=== PATIENT | male | born 1955 | race Caucasian/White ===

== ENCOUNTER 2019-12-12 07:20 | Emergency (ER) | payer MEDICARE, BC ==
[2019-12-12] MEDS ORDERED: Phenytoin SUSP(*) 100 MG/4 ML UDC (100 MG) PO ONE (08:01)
--- NOTE | 2019-12-12 08:07 | ED ---
GI/ HPI - HPI Summary HPI Summary: 63-year-old male presents to the emergency department today with a chief complaint of explosive diarrhea for approximately 24 hours. Patient states he otherwise feels well and has no complaints. Patient endorses a liquid diet due to having dysphasia. He states he tried a new protein drink which within minutes of consuming caused him to have nausea and approximately 9 bouts of explosive diarrhea. Patient denies fevers, blood per rectum, vomiting but does have 3 out of 10 abdominal pain which is resolving. Patient states he has been unable to take his seizure medication, Dilantin, due to nausea. Patient denies fever, chills, shortness of breath, pain with urination, rash, lightheadedness, vomiting. - History of Current Complaint Chief Complaint: EDNauseaVomitDiarrh Time Seen by Provider: 12/12/19 07:52 Stated Complaint: ABD PAIN/SEVERE DIARREA PER PT Hx Obtained From: Patient, Family/Supervisor Correspondence Section - Onset/Duration: Started Hours Ago Timing: Intermittent, Lasting Minutes Severity: Moderate Current Severity: Moderate Pain Intensity: 1 Location of Pain: Diffuse Pain Characteristics: Cramping Associated Signs and Symptoms: Positive: Nausea, Diarrhea. Negative: Vomiting, Constipation, Blood-Streaked Stool, Bright Red Blood w/Stool, Blood w/Stool, Fever - Allergy/Home Medications Allergies/Adverse Reactions: Allergies Allergy/AdvReac Type Severity Reaction Status Date / Time No Known Allergies Allergy Verified 12/12/19 07:24 Home Medications: Home Medications Albuterol HFA INHALER* [Ventolin HFA Inhaler*] 1 puff INH Q4H PRN 12/12/19 [ History Confirmed 12/12/19] Atenolol TAB* [Tenormin TAB* 25 MG] 25 mg PO DAILY 12/12/19 [History Confirmed 12/12/19] Flu Vacc [id number](6Mos Up)/Pf [Fluzone Quad Syringe] 60 mcg IM ONCE 12/12/19 [History Confirmed 12/12/19] Magnesium Oxide TAB* [MagOx 400 TAB*] 400 mg PO DAILY 12/12/19 [History Confirmed 12/12/19] Nitroglycerin 0.1 mg/Hr PATCH* [Nitroglycerin 2.5 MG PATCH*] 1 patch TRANSDERM QPM 12/12/19 [History Confirmed 12/12/19] Phenytoin CAP(*) [Dilantin CAP(*)] 300 mg PO BID 12/12/19 [History Confirmed 01/26] Prazosin 1 mg CAP [Minipress 1 mg CAP] 1 mg PO BID 12/12/19 [History Confirmed 12/12/19] predniSONE [Prednisone 20 MG TAB] 40 mg PO DAILY 12/12/19 [History Confirmed 01/26] PMH/Surg Hx/FS Hx/Imm Hx - Immunization History Date of Influenza Vaccine: 2019 Immunizations Up to Date: Yes Infectious Disease History: No Infectious Disease History: Denies: Traveled Outside the [place] in Last 30 Days - Social History Alcohol Use: None Substance Use Type: Reports: None Smoking Status (MU): Never Smoked Tobacco Review of Systems Constitutional: Negative Eyes: Negative ENT: Negative Cardiovascular: Negative Respiratory: Negative Positive: Abdominal Pain, Diarrhea, Nausea. Negative: Vomiting Genitourinary: Negative Musculoskeletal: Negative Skin: Negative Neurological: Negative Psychological: Normal All Other Systems Reviewed And Are Negative: Yes Physical Exam Triage Information Reviewed: Yes Vital Signs On Initial Exam: Initial Vitals Temp Pulse Resp BP Pulse Ox 97.1 F 89 19 145/87 94 12/12/19 07:23 12/12/19 07:23 12/12/19 07:23 12/12/19 07:23 12/12/19 07:23 Vital Signs Reviewed: Yes Appearance: Positive: Well-Appearing, No Pain Distress, Well-Nourished, Thin Skin: Positive: Warm, Skin Color Reflects Adequate Perfusion Eyes: Positive: EOMI, BRIDGETTE ENT: Positive: Hearing grossly normal Respiratory/Lung Sounds: Positive: Clear to Auscultation, Breath Sounds Present Cardiovascular: Positive: RRR, S1, S2 Abdomen Description: Positive: Nontender, No Organomegaly, Soft. Negative: Distended, Guarding Bowel Sounds: Positive: Present Musculoskeletal: Positive: Strength/ROM Intact Neurological: Positive: Sensory/Motor Intact, Alert, Oriented to Person Place, Time, Normal Gait, Speech Normal Psychiatric: Positive: Normal, Affect/Mood Appropriate AVPU Assessment: Alert Procedures - Sedation Patient Received Moderate/Deep Sedation with Procedure: No Diagnostics - Vital Signs Vital Signs Temp Pulse Resp BP Pulse Ox 12/12/19 07:23 97.1 F 89 19 145/87 94 - Laboratory Result Diagrams: 12/12/19 08:10 12/12/19 08:10 Lab Statement: Any lab studies that have been ordered have been reviewed, and results considered in the medical decision making process. GIGU Course/Dx - Course Course Of Treatment: Patient was evaluated in the emergency department today for suspected dehydration. Vitals noted and stable. Phenytoin level was ordered at the patient's 's request as the patient has been unable to take his phenytoin. Phenytoin levels slightly low. All other labs are within normal limits and there are no significant electrolyte abnormalities or evidence of leukocytosis. Patient was given 2 L of lactated Ringer's for fluid resuscitation. Patient endorsed feeling much better after being given fluids. Patient discharged with outpatient follow-up. - Diagnoses Differential Diagnoses - Male: Diarrhea, Gastritis, Gastroenteritis (Bacterial) , Gastroenteritis (Viral) Provider Diagnoses: Dehydration, Diarrhea Discharge ED - Sign-Out/Discharge Documenting (check all that apply): Patient Departure - Discharge Plan Condition: Stable Disposition: HOME Patient Education Materials: Dehydration (ED) Referrals: [facility] [Outside] - 3 Days No Primary Care Phys,NOPCP [Primary Care Provider] - Additional Instructions: You were seen in the emergency department today due to dehydration. Please be sure to increase oral intake of fluids. Please follow up with [facility] in 3 days for further evaluation and management. Please return to the emergency department immediately if you develop any new or worsening symptoms. - Billing Disposition and Condition Condition: STABLE Disposition: Home - Attestation Statements Provider Attestation: I was available for consultation for this patient. I did not evaluate the patient, or participate in any medical decision making or disposition decisions unless I am specifically named in the chart as having consulted on the patient. If I have consulted on the patient, please see my own ED note on the patient encounter. Silvia Sorenson MD
[2019-12-12 08:22] LABS: ABS Basophils 0.1 10^3/ul (0-0.2); ABS Eosinophils 0.2 10^3/ul (0-0.6); ABS Lymphocytes 0.6 10^3/ul (1.0-4.8); ABS Monocytes 0.4 10^3/ul (0-0.8); ABS Neutrophils 4.1 10^3/ul (1.5-7.7); Eosinophil % 4.4 %; Hematocrit 46 % (42-52); Hemoglobin 15.7 g/dL (14.0-18.0); Lymphocyte % 10.5 %; Mean Corpuscular HGB Conc 34 g/dL (31-36); Mean Corpuscular Hemoglobin 30 pg (27-31); Mean Corpuscular Volume 88 fL (80-94); Mean Platelet Volume 6.7 fL (7.4-10.4); Nucleated Red Blood Cells % 0.1; Platelet Count 293 10^3/uL (150-450); Red Blood Count 5.27 10^6 /uL (4.18-5.48); Red Cell Distribution Width 14 % (10-15); White Blood Count 5.4 10^3/uL (3.5-10.8)
[2019-12-12 08:39] LABS: Albumin 3.8 g/dL (3.2-5.2); Albumin/Globulin Ratio 0.9 (1-3); BUN/Creatinine Ratio 19.6 (8-20); Calcium 9.4 mg/dL (8.6-10.3); EGFR African American 100.2 (>60); EGFR Non-African American 82.8 (>60); Globulin 4.3 g/dL (2-4); Magnesium 1.8 mg/dL (1.9-2.7); Potassium 4.3 mmol/L (3.5-5.0); Total Bilirubin 0.5 mg/dL (0.2-1.0); Total Protein 8.1 g/dL (6.4-8.9)
[2019-12-12 08:48] LABS: Phenytoin 9.3 mcg/mL (10-20)
[2019-12-12] MEDS ORDERED: Lactated Ringers 1000 ML Bag* 1,000 ML IV SCH (09:00)
[2019-12-12] MEDS ORDERED: Phenytoin CHEW TAB(*) 50 MG PO ONE (09:30)
[2019-12-12 10:37] VITALS: BP 162/127
== END 2019-12-12 10:37 | disposition home or self-care (01) ==
LOC: ED 07:20
DX: R19.7 Diarrhea, unspecified (principal); E86.0 Dehydration; Z79.899 Other long term (current) drug therapy
CPT/HCPCS: 36415; 80053; 80185; 83735; 85025; 96360; 99282; A9270-GY

== ENCOUNTER 2020-04-29 00:35 | Inpatient (IN) ==
[2020-04-29] MEDS ORDERED: NS 0.9% 1000 ml BAG 1,000 ML IV ONE (00:52)
[2020-04-29] MEDS ORDERED: Albuterol/Ipratropium NEB.SOL (2.5/0.5 MG) 3 ML NEB.SOLN ONE (01:10)
[2020-04-29] MEDS ORDERED: Albuterol/Ipratropium NEB.SOL (2.5/0.5 MG) 3 ML NEB.SOLN INH ONE ×2 (01:22→03:29)
[2020-04-29] MEDS ORDERED: Piperacillin/Tazobac ADVAN(*) 3.375 GM in NS 0.9% 100 ml BAG 100 ML IVPB ONE (02:10)
[2020-04-29] MEDS ORDERED: methylPREDNISolone 125 mg 2 ML VIAL IV ONE (02:31)
[2020-04-29 02:47] LABS: ABS Basophils 0.1 10^3/ul (0-0.2); ABS Eosinophils 0.2 10^3/ul (0-0.6); ABS Monocytes 0.7 10^3/ul (0-0.8); Eosinophil % 3.3 %; Hematocrit 50 % (42-52); Hemoglobin 17.1 g/dL (14.0-18.0); Mean Corpuscular HGB Conc 34 g/dL (31-36); Mean Corpuscular Hemoglobin 31 pg (27-31); Mean Corpuscular Volume 91 fL (80-94); Mean Platelet Volume 7.6 fL (7.4-10.4); Nucleated Red Blood Cells % 0.1; Platelet Count 371 10^3/uL (150-450); Red Blood Count 5.47 10^6 /uL (4.18-5.48); Red Cell Distribution Width 14 % (10-15)
[2020-04-29] MEDS ORDERED: Cefepime 2 GM in Dextrose(*) 2 GM/50 ML BAG IV ONE (02:52)
[2020-04-29] MEDS ORDERED: metroNIDAZOLE IV 250 MG/50ML 50 ML IVPB ONE ×2 (02:53→06:00)
[2020-04-29 02:59] LABS: INR 1.35 (0.82-1.09)
[2020-04-29] MEDS ORDERED: Ondansetron 4 mg VIAL 2 MG/ML 2 ml VIAL IV PRN (02:59)
[2020-04-29 03:06] LABS: ALT 18 U/L (7-52); AST 24 U/L (13-39); Albumin 3.9 g/dL (3.2-5.2); Albumin/Globulin Ratio 0.9 (1-3); Alkaline Phosphatase 73 U/L (34-104); Anion Gap 9 mmol/L (2-11); BUN/Creatinine Ratio 27.7 (8-20); Blood Urea Nitrogen 23 mg/dL (6-24); CO2 Carbon Dioxide 32 mmol/L (22-32); Calcium 9.8 mg/dL (8.6-10.3); Chloride 93 mmol/L (101-111); EGFR African American 112.5 (>60); Globulin 4.5 g/dL (2-4); Glucose 176 mg/dL (70-100); Potassium 3.7 mmol/L (3.5-5.0); Sodium 134 mmol/L (135-145); Total Protein 8.4 g/dL (6.4-8.9)
[2020-04-29 03:11] LABS: Troponin I 0.03 ng/mL (<0.03)
[2020-04-29] MEDS: Pantoprazole VIAL 40 MG VIAL IV SCH ×2 (03:18→19:58)
[2020-04-29 03:28] LABS: Magnesium 1.5 mg/dL (1.9-2.7); Phosphorus 3.3 mg/dL (2.5-5.0)
[2020-04-29] MEDS ORDERED: NS 0.9% 1000 ml BAG 1,000 ML IV SCH (03:30)
[2020-04-29] MEDS ORDERED: Albuterol/Ipratropium NEB.SOL (2.5/0.5 MG) 3 ML NEB.SOLN INH PRN (03:33)
[2020-04-29] MEDS: Nitro Patch/OINT Remove PATCH PATCH OFF SCH (06:24)
[2020-04-29] MEDS ORDERED: PHENYTOIN 100 MG SCH (09:00)
[2020-04-29 09:40] LABS: Troponin I 0.03 ng/mL (<0.03)
[2020-04-29] MEDS: Cefepime 2 GM in Dextrose(*) 2 GM/50 ML BAG IV SCH (15:38)
[2020-04-29] MEDS ORDERED: metroNIDAZOLE IV 500 MG/100ML 500 MG/100 ML BAG IVPB SCH (17:00)
[2020-04-29] MEDS: Nitroglycerin 0.1 mg/hr PATCH (2.5 mg) TRANSDERM SCH (17:46)
[2020-04-29] MEDS ORDERED: Lactated Ringers 1000 ml BAG 1,000 ML IV SCH (18:00)
[2020-04-30] MEDS: Cefepime 2 GM in Dextrose(*) 2 GM/50 ML BAG IV SCH ×2 (04:04→16:38)
[2020-04-30] MEDS: Nitro Patch/OINT Remove PATCH PATCH OFF SCH (06:01)
[2020-04-30 06:49] LABS: BUN/Creatinine Ratio 33.3 (8-20); Calcium 9.6 mg/dL (8.6-10.3); EGFR African American 120.9 (>60); EGFR Non-African American 99.9 (>60)
[2020-04-30 07:15] LABS: Phenytoin 33.2 mcg/mL (10-20)
[2020-04-30] MEDS ORDERED: Lorazepam PYXIS KEY ONE ×2 (09:40→09:42)
[2020-04-30] MEDS: Pantoprazole VIAL 40 MG VIAL IV SCH ×2 (09:49→21:06)
[2020-04-30] MEDS ORDERED: metroNIDAZOLE IV 250 MG/50ML 50 ML IVPB SCH (13:00)
[2020-04-30] MEDS: Albuterol/Ipratropium NEB.SOL (2.5/0.5 MG) 3 ML NEB.SOLN INH SCH ×2 (13:02→19:26)
[2020-04-30] MEDS ORDERED: Lactated Ringers 500 ml BAG 500 ML IV ONE (13:43)
[2020-04-30] MEDS: Enoxaparin 40 MG/0.4 ML SYR(*) SUBCUT SCH (15:07)
[2020-04-30] MEDS: Lactated Ringers 1000 ml BAG 1,000 ML IV SCH (15:09)
[2020-04-30] MEDS: Nitroglycerin 0.1 mg/hr PATCH (2.5 mg) TRANSDERM SCH (16:48)
[2020-04-30] MEDS: metroNIDAZOLE IV 250 MG/50ML 50 ML IVPB SCH (21:06)
[2020-05-01] MEDS: Albuterol/Ipratropium NEB.SOL (2.5/0.5 MG) 3 ML NEB.SOLN INH SCH ×3 (00:38→14:47)
[2020-05-01] MEDS: Lactated Ringers 1000 ml BAG 1,000 ML IV SCH (00:52)
[2020-05-01] MEDS: metroNIDAZOLE IV 250 MG/50ML 50 ML IVPB SCH ×4 (04:36→21:01)
[2020-05-01] MEDS: Cefepime 2 GM in Dextrose(*) 2 GM/50 ML BAG IV SCH ×2 (06:11→16:31)
[2020-05-01] MEDS: Nitro Patch/OINT Remove PATCH PATCH OFF SCH (06:12)
[2020-05-01 07:12] LABS: ABS Lymphocytes 0.4 10^3/ul (1.0-4.8); ABS Monocytes 0.6 10^3/ul (0-0.8); Eosinophil % 0.6 %; Hematocrit 38 % (42-52); Hemoglobin 13.1 g/dL (14.0-18.0); Lymphocyte % 5.8 %; Mean Corpuscular HGB Conc 35 g/dL (31-36); Mean Corpuscular Hemoglobin 32 pg (27-31); Mean Corpuscular Volume 92 fL (80-94); Mean Platelet Volume 7.2 fL (7.4-10.4); Nucleated Red Blood Cells % 0.1; Platelet Count 205 10^3/uL (150-450); Red Cell Distribution Width 14 % (10-15); White Blood Count 7.6 10^3/uL (3.5-10.8)
[2020-05-01 07:31] LABS: Albumin 3.3 g/dL (3.2-5.2); Albumin/Globulin Ratio 0.9 (1-3); BUN/Creatinine Ratio 37.2 (8-20); Calcium 9.2 mg/dL (8.6-10.3); EGFR Non-African American 89.2 (>60); Globulin 3.6 g/dL (2-4); Potassium 3.8 mmol/L (3.5-5.0); Total Bilirubin 0.5 mg/dL (0.2-1.0); Total Protein 6.9 g/dL (6.4-8.9)
[2020-05-01 07:37] LABS: Phenytoin 24.5 mcg/mL (10-20)
[2020-05-01] MEDS ORDERED: Albuterol 2.5mg/3 ml (0.083%) NEB.SOLN INH PRN (07:50)
[2020-05-01] MEDS: Pantoprazole VIAL 40 MG VIAL IV SCH ×2 (09:29→21:01)
[2020-05-01] MEDS ORDERED: guaiFENesin 100 mg/5 ml LIQ unit dose cup G TUBE PRN (12:36)
[2020-05-01] MEDS: Enoxaparin 40 MG/0.4 ML SYR(*) SUBCUT SCH (12:51)
[2020-05-01] MEDS ORDERED: Albuterol/Ipratropium NEB.SOL (2.5/0.5 MG) 3 ML NEB.SOLN INH PRN (14:51)
[2020-05-01] MEDS: Nitroglycerin 0.1 mg/hr PATCH (2.5 mg) TRANSDERM SCH (18:00)
[2020-05-01] MEDS ORDERED: Nitroglycerin 0.1 mg/hr PATCH (2.5 mg) TRANSDERM SCH (18:30)
[2020-05-02] MEDS: metroNIDAZOLE IV 250 MG/50ML 50 ML IVPB SCH ×2 (03:03→09:04)
[2020-05-02] MEDS: Nitro Patch/OINT Remove PATCH PATCH OFF SCH (04:11)
[2020-05-02] MEDS: Cefepime 2 GM in Dextrose(*) 2 GM/50 ML BAG IV SCH (04:11)
[2020-05-02 06:53] LABS: ABS Eosinophils 0.2 10^3/ul (0-0.6); ABS Lymphocytes 0.6 10^3/ul (1.0-4.8); ABS Monocytes 0.6 10^3/ul (0-0.8); Eosinophil % 3.1 %; Hematocrit 37 % (42-52); Hemoglobin 12.7 g/dL (14.0-18.0); Mean Corpuscular HGB Conc 35 g/dL (31-36); Mean Corpuscular Hemoglobin 32 pg (27-31); Mean Corpuscular Volume 91 fL (80-94); Mean Platelet Volume 7.2 fL (7.4-10.4); Platelet Count 201 10^3/uL (150-450); Red Blood Count 4.04 10^6 /uL (4.18-5.48); Red Cell Distribution Width 14 % (10-15); White Blood Count 7.9 10^3/uL (3.5-10.8)
[2020-05-02 07:02] LABS: EGFR African American 117.4 (>60); Potassium 3.7 mmol/L (3.5-5.0)
[2020-05-02 07:51] LABS: Phenytoin 20.4 mcg/mL (10-20)
[2020-05-02] MEDS: Pantoprazole VIAL 40 MG VIAL IV SCH (09:03)
[2020-05-02] MEDS: Lactated Ringers 1000 ml BAG 1,000 ML IV SCH (09:22)
[2020-05-02 12:08] VITALS: BP 110/62
[2020-05-02] MEDS: Enoxaparin 40 MG/0.4 ML SYR(*) SUBCUT SCH (13:38)
== END 2020-05-02 16:25 | disposition home or self-care (01) | DRG 177 ==
LOC: ED 00:35 → ICU 03:49 → MED 17:25
PROVIDERS: ADMIT Internal Medicine; ATTEND Internal Medicine

== ENCOUNTER 2022-02-15 17:27 | Inpatient (IN) ==
[2022-02-15] MEDS ORDERED: NS 0.9% 1000 ml BAG 1,000 ML IV ONE (17:44)
[2022-02-15 18:31] LABS: ABS Lymphocytes 0.5 10^3/ul (1.0-4.8); ABS Monocytes 0.1 10^3/ul (0-0.8); ABS Neutrophils 3.2 10^3/ul (1.5-7.7); Hematocrit 43 % (42-52); Hemoglobin 14.3 g/dL (14.0-18.0); Lymphocyte % 13.6 %; Mean Corpuscular HGB Conc 34 g/dL (31-36); Mean Corpuscular Hemoglobin 28 pg (27-31); Mean Corpuscular Volume 83 fL (80-94); Mean Platelet Volume 8.1 fL (7.4-10.4); Nucleated Red Blood Cells % 0.1; Platelet Count 278 10^3/uL (150-450); Red Blood Count 5.14 10^6 /uL (4.18-5.48); Red Cell Distribution Width 15 % (10-15); White Blood Count 3.9 10^3/uL (3.5-10.8)
[2022-02-15 19:00] LABS: Albumin 3.6 g/dL (3.2-5.2); Calcium 8.7 mg/dL (8.6-10.3); Globulin 3.5 g/dL (2-4); Potassium 4.2 mmol/L (3.5-5.0); Total Bilirubin 0.7 mg/dL (0.2-1.0); Total Protein 7.1 g/dL (6.4-8.9); eGFR CKD-EPI 93.6 (>60)
[2022-02-15 19:08] LABS: PCO2 Arterial 42 mmHg (35-45); PO2 Arterial 70 mmHg (80-100)
[2022-02-15] MEDS ORDERED: Rocuronium 50 mg VIAL 10 mg/ml 5 ml VIAL (50 mg) ONE (19:16)
[2022-02-15] MEDS ORDERED: Succinylcholine 200 mg VIAL 20 mg/ml 10 ml VIAL (200 mg) ONE (19:16)
[2022-02-15] MEDS ORDERED: Iohexol 350 (CONTRAST) 500 ML MDV IV ONE (19:16)
[2022-02-15] MEDS ORDERED: Metoprolol Tartrate 5 mg VIAL 5 ml VIAL (1 mg/ml) ONE (19:42)
[2022-02-15] MEDS: Metoprolol Tartrate 5 mg VIAL 5 ml VIAL (1 mg/ml) IV PRN (19:44)
[2022-02-15] MEDS ORDERED: Piperacillin/Tazobac ADVAN 3.375 GM in NS 0.9% 100 ml BAG 100 ML IV ONE (20:20)
[2022-02-15] MEDS ORDERED: Heparin DRIP 25,000 UNITS BAG 25,000 UNITS/500 ML BAG IV SCH (20:30)
[2022-02-15 20:34] LABS: High Sensitivity Troponin 1 Hr 18 pg/mL (<20)
[2022-02-15] MEDS ORDERED: Ondansetron 4 mg VIAL 2 MG/ML 2 ml VIAL IV PRN (20:57)
[2022-02-15] MEDS ORDERED: Heparin 5000 UNITS/ML 1 mL VIAL IV SCH (21:00)
[2022-02-15] MEDS ORDERED: Dexmedetomidine 1,000 MCG in NS 0.9% 250 ml 240 ML IV SCH (21:00)
[2022-02-15] MEDS ORDERED: Zosyn per Pharmacy NOTE FOLLOW UP SCH (21:00)
[2022-02-15] MEDS: Nitroglycerin 0.4 mg/hr PATCH (10 mg) TRANSDERM SCH (21:15)
[2022-02-15 21:16] LABS: INR 1.78 (0.86-1.15)
[2022-02-15 21:59] LABS: INR 4.04 (0.86-1.15)
[2022-02-15] MEDS ORDERED: D5W 1/2 NS KCl 20 meq 1000 ml 1,000 ML IV SCH (22:00)
[2022-02-15] MEDS: Enoxaparin 80 MG/0.8 ML SYR SUBCUT SCH (22:59)
[2022-02-16] MEDS: ZOSYN 3.375 GM Q8H per EXTENDED INFUSION IV SCH ×3 (02:12→17:44)
[2022-02-16 06:11] LABS: ABS Lymphocytes 0.3 10^3/ul (1.0-4.8); ABS Monocytes 0.3 10^3/ul (0-0.8); ABS Neutrophils 10.1 10^3/ul (1.5-7.7); Hematocrit 38 % (42-52); Hemoglobin 12.4 g/dL (14.0-18.0); Lymphocyte % 2.6 %; Mean Corpuscular HGB Conc 33 g/dL (31-36); Mean Corpuscular Hemoglobin 27 pg (27-31); Mean Corpuscular Volume 82 fL (80-94); Mean Platelet Volume 7.7 fL (7.4-10.4); Platelet Count 244 10^3/uL (150-450); Red Blood Count 4.57 10^6 /uL (4.18-5.48); Red Cell Distribution Width 15 % (10-15); White Blood Count 10.7 10^3/uL (3.5-10.8)
[2022-02-16 06:19] LABS: INR 2.71 (0.86-1.15)
[2022-02-16 06:52] LABS: Albumin 2.9 g/dL (3.2-5.2); Albumin/Globulin Ratio 1.1 (1-3); Calcium 8.2 mg/dL (8.6-10.3); Globulin 2.7 g/dL (2-4); Potassium 4.1 mmol/L (3.5-5.0); Total Bilirubin 0.8 mg/dL (0.2-1.0); Total Protein 5.6 g/dL (6.4-8.9); eGFR CKD-EPI 83.5 (>60)
[2022-02-16] MEDS ORDERED: Piperacillin/Tazobac 3.375 GM BAG ONE (09:55)
[2022-02-16] MEDS: Enoxaparin 80 MG/0.8 ML SYR SUBCUT SCH ×2 (10:01→21:03)
[2022-02-16] MEDS: Metoprolol Tartrate 5 mg VIAL 5 ml VIAL (1 mg/ml) IV PRN (10:02)
[2022-02-16] MEDS ORDERED: Lactated Ringers 500 ml BAG 500 ML IV ONE (12:04)
[2022-02-16] MEDS: Levalbuterol 0.63MG/3ML NEB UNIT OF USE INH PRN (13:13)
[2022-02-16] MEDS ORDERED: Lactated Ringers 1000 ml BAG 1,000 ML IV ONE (13:22)
[2022-02-16] MEDS ORDERED: LORazepam 2 mg VIAL 1 ml ONE (15:20)
[2022-02-16] MEDS ORDERED: Lorazepam PYXIS KEY ONE (15:20)
[2022-02-16] MEDS ORDERED: LORazepam 2 mg VIAL 1 ml IV PUSH ONE (15:20)
[2022-02-16] MEDS: Nitroglycerin 0.4 mg/hr PATCH (10 mg) TRANSDERM SCH (21:05)
[2022-02-17] MEDS: Dexmedetomidine 1,000 MCG in NS 0.9% 250 ml 240 ML IV SCH (01:59)
[2022-02-17] MEDS: ZOSYN 3.375 GM Q8H per EXTENDED INFUSION IV SCH ×4 (03:44→17:29)
[2022-02-17] MEDS ORDERED: Nitroglycerin 0.4 mg/hr PATCH (10 mg) TRANSDERM SCH ×2 (06:00→20:00)
[2022-02-17] MEDS: Enoxaparin 80 MG/0.8 ML SYR SUBCUT SCH (08:33)
[2022-02-17] MEDS ORDERED: Perflutren Lipid Microsphere 3 ML VIAL ONE (08:33)
[2022-02-17 08:41] LABS: ABS Eosinophils 0.1 10^3/ul (0-0.6); ABS Lymphocytes 0.5 10^3/ul (1.0-4.8); ABS Monocytes 0.3 10^3/ul (0-0.8); ABS Neutrophils 4.9 10^3/ul (1.5-7.7); Eosinophil % 1.8 %; Hematocrit 38 % (42-52); Hemoglobin 12.4 g/dL (14.0-18.0); Lymphocyte % 8.2 %; Mean Corpuscular HGB Conc 32 g/dL (31-36); Mean Corpuscular Hemoglobin 27 pg (27-31); Mean Corpuscular Volume 84 fL (80-94); Mean Platelet Volume 7.9 fL (7.4-10.4); Platelet Count 244 10^3/uL (150-450); Red Blood Count 4.55 10^6 /uL (4.18-5.48); Red Cell Distribution Width 15 % (10-15); White Blood Count 5.8 10^3/uL (3.5-10.8)
[2022-02-17 09:24] LABS: Calcium 8.4 mg/dL (8.6-10.3); Magnesium 1.5 mg/dL (1.9-2.7); Potassium 3.9 mmol/L (3.5-5.0); eGFR CKD-EPI 93.9 (>60)
[2022-02-17] MEDS ORDERED: Magnesium Sulfate IV 3 GM in NS 0.9% 100 ml BAG 100 ML IVPB ONE (10:24)
[2022-02-17] MEDS ORDERED: Magnesium Sulfate 2 GM IV (Premix) IVPB ONE (11:00)
[2022-02-17] MEDS ORDERED: Heparin DRIP 25,000 UNITS BAG 25,000 UNITS/500 ML BAG IV SCH (11:45)
[2022-02-17] MEDS ORDERED: Heparin 5000 UNITS/ML 1 mL VIAL IV PRN (12:00)
[2022-02-17] MEDS ORDERED: Magnesium Sulfate 1 GM IV 1 GM/100 ML BAG IV ONE (12:00)
[2022-02-17] MEDS ORDERED: D5W 1/2 NS 1000 ml BAG 1,000 ML IV SCH ×2 (13:00→22:23)
[2022-02-17] MEDS: Levalbuterol 0.63MG/3ML NEB UNIT OF USE INH PRN (13:10)
[2022-02-17] MEDS ORDERED: Nitroglycerin 0.2 mg/hr PATCH (5 mg) TRANSDERM SCH (23:00)
[2022-02-18] MEDS: ZOSYN 3.375 GM Q8H per EXTENDED INFUSION IV SCH ×3 (01:33→17:59)
[2022-02-18] MEDS: Labetalol IV 5 MG/ML 20 ml VIAL IV PUSH PRN ×2 (02:34→13:54)
[2022-02-18 03:38] LABS: ABS Basophils 0.1 10^3/ul (0-0.2); ABS Eosinophils 0.1 10^3/ul (0-0.6); ABS Lymphocytes 0.7 10^3/ul (1.0-4.8); ABS Monocytes 0.3 10^3/ul (0-0.8); ABS Neutrophils 4.2 10^3/ul (1.5-7.7); Eosinophil % 2.2 %; Hematocrit 37 % (42-52); Hemoglobin 12.4 g/dL (14.0-18.0); Mean Corpuscular HGB Conc 33 g/dL (31-36); Mean Corpuscular Hemoglobin 27 pg (27-31); Mean Corpuscular Volume 82 fL (80-94); Mean Platelet Volume 7.6 fL (7.4-10.4); Nucleated Red Blood Cells % 0.2; Platelet Count 247 10^3/uL (150-450); Red Blood Count 4.56 10^6 /uL (4.18-5.48); Red Cell Distribution Width 16 % (10-15); White Blood Count 5.3 10^3/uL (3.5-10.8)
[2022-02-18 04:14] LABS: Calcium 8.3 mg/dL (8.6-10.3); Magnesium 1.9 mg/dL (1.9-2.7); Phosphorus 1.6 mg/dL (2.5-5.0); Potassium 3.2 mmol/L (3.5-5.0); eGFR CKD-EPI 99.3 (>60)
[2022-02-18] MEDS ORDERED: Buffered Lidocaine 1% SYRIN 1 ml INTRADERM ONE ×2 (06:00)
[2022-02-18] MEDS ORDERED: Lactated Ringers 1000 ml BAG 1,000 ML IV SCH ×2 (06:00)
[2022-02-18] MEDS: Dexmedetomidine 1,000 MCG in NS 0.9% 250 ml 240 ML IV SCH (09:21)
[2022-02-18] MEDS ORDERED: fentaNYL 100 mcg/2 ml 50 MCG/ML VIAL ONE (09:50)
[2022-02-18] MEDS ORDERED: Midazolam 2 mg/2 ml VIAL 1 mg/ml 2 ml VIAL (2 mg) ONE (09:50)
[2022-02-18] MEDS ORDERED: Bupivacaine 0.25% w/EPI 10 ML SDV ONE ×2 (09:55)
[2022-02-18] MEDS ORDERED: Lidocaine 1% VIAL 10 MG/ML VIAL ONE (09:55)
[2022-02-18] MEDS ORDERED: Dexmedetomidine 200 mcg/2 ml 2 ml VIAL (200 mcg) ONE (10:19)
[2022-02-18] MEDS: KCL 20 MEQ/100 ML IVPREMIX 20 MEQ/100 ML BAG IV SCH ×2 (10:42→14:48)
[2022-02-18] MEDS ORDERED: hydrALAZINE 20 mg/ml 1 ML Vial IV IV SLOW PU PRN (14:49)
[2022-02-18] MEDS ORDERED: Morphine 10 MG/ML VIAL (1 ml) IV PRN (14:49)
[2022-02-18] MEDS: Acetaminophen IV 1 GM/100ML 100 ML IV PRN (15:53)
[2022-02-18] MEDS ORDERED: Potassium Phosphate IV 15 MMOLE in NS 0.9% 250 ml 250 ML IVPB ONE (20:00)
[2022-02-18] MEDS ORDERED: Nitroglycerin 0.4 mg/hr PATCH (10 mg) TRANSDERM SCH (20:00)
[2022-02-18] MEDS: guaiFENesin 100 mg/5 ml LIQ unit dose cup PO PRN (20:22)
[2022-02-18] MEDS: Levalbuterol 0.63MG/3ML NEB UNIT OF USE INH PRN (21:49)
[2022-02-19] MEDS: Dexmedetomidine 1,000 MCG in NS 0.9% 250 ml 240 ML IV SCH (01:25)
[2022-02-19] MEDS: ZOSYN 3.375 GM Q8H per EXTENDED INFUSION IV SCH ×3 (01:25→16:18)
[2022-02-19] MEDS: Acetaminophen IV 1 GM/100ML 100 ML IV PRN (03:36)
[2022-02-19 04:58] LABS: ABS Eosinophils 0.2 10^3/ul (0-0.6); ABS Lymphocytes 0.4 10^3/ul (1.0-4.8); ABS Monocytes 0.2 10^3/ul (0-0.8); ABS Neutrophils 3.8 10^3/ul (1.5-7.7); Eosinophil % 3.4 %; Hematocrit 37 % (42-52); Hemoglobin 12.3 g/dL (14.0-18.0); Lymphocyte % 8.4 %; Mean Corpuscular HGB Conc 33 g/dL (31-36); Mean Corpuscular Hemoglobin 27 pg (27-31); Mean Corpuscular Volume 82 fL (80-94); Mean Platelet Volume 7.8 fL (7.4-10.4); Platelet Count 242 10^3/uL (150-450); Red Blood Count 4.53 10^6 /uL (4.18-5.48); Red Cell Distribution Width 15 % (10-15); White Blood Count 4.7 10^3/uL (3.5-10.8)
[2022-02-19 05:30] LABS: Magnesium 1.6 mg/dL (1.9-2.7); Potassium 3.6 mmol/L (3.5-5.0)
[2022-02-19 05:36] LABS: Phosphorus 2.7 mg/dL (2.5-5.0)
[2022-02-19] MEDS ORDERED: Magnesium Sulfate 2 gm BAG 2 GM/50 ML BAG IVPB ONE (07:54)
[2022-02-19] MEDS: guaiFENesin 100 mg/5 ml LIQ unit dose cup PO PRN (09:21)
[2022-02-19] MEDS ORDERED: HYDROcodone/ACET. 7.5/325 LIQ 15 ML UDC PO PRN (10:30)
[2022-02-19 15:22] VITALS: BP 145/89
== END 2022-02-19 17:15 | disposition home or self-care (01) | DRG 177 ==
LOC: ED 17:27 → EDHOLD 20:57 → SUATTDRO 20:57 → ICU 02-16 11:15
PROVIDERS: ADMIT Hospitalist; ATTEND Surgery Surgical Critical Care